=== PATIENT | male | born 1950 | race Caucasian/White ===

== ENCOUNTER 2018-05-29 09:16 | Outpatient (CLI) | payer MEDICARE | END 2018-05-29 09:17 | disposition home or self-care (01) | LOC: SC 09:16 | PROVIDERS: ATTEND Internal Medicine Pulmonary Disease | DX: G47.10 Hypersomnia, unspecified (principal); G47.8 Other sleep disorders; R06.83 Snoring | CPT/HCPCS: 99203; G0463; 99212 ==

== ENCOUNTER 2018-11-01 20:16 | Outpatient (CLI) | payer MEDICARE | END 2018-11-01 20:17 | disposition home or self-care (01) | LOC: SC 20:16 | PROVIDERS: ATTEND Internal Medicine Pulmonary Disease | DX: G47.33 Obstructive sleep apnea (adult) (pediatric) (principal) | CPT/HCPCS: 95810 ==

== ENCOUNTER 2019-01-01 | Outpatient (CLI) | payer MEDICARE | END 2019-01-01 10:06 | disposition home or self-care (01) | DX: G47.33 Obstructive sleep apnea (adult) (pediatric) (principal) | CPT/HCPCS: 99213; G0463; 99212 ==

== ENCOUNTER 2020-03-01 09:27 | Emergency (ER) | payer MEDICARE, OTHER ==
[2020-03-01] MEDS ORDERED: SODIUM CHLORIDE 0.9% 1,000 ML IV STA (10:17)
--- NOTE | 2020-03-01 10:20 | ED Physician Documentation ---
PD HPI ALTERED MENTAL STATUS - Stated complaint Stated Complaint: AMS/CONFUSION - Chief complaint Chief Complaint: Neuro - History obtained from History obtained from: Patient, Family - History of Present Illness Timing - onset: Today Timing - duration: Hours Timing - details: Still present Quality / character: Confused, Disoriented Associated symptoms: General weakness. No: Fever, Headache, Stiff neck, Dyspnea, Cough, NVD, Urinary sx, Focal weakness, Seizure activity, Syncope Contributing factors: Anticoagulated Basline status: Alert and oriented X 3, Ambulatory, Independent Similar symptoms before: Diagnosis (dehydration 2016) Recently seen: Clinic (has recently been started on Tamsulosin) - Additional information Additional information: 69-year-old male previously well went to bed last night feeling his usual self daughter noted he was in his usual self last night. This morning he appears confused and the patient admits to feeling generalized weakness. The daughter indicates that the patient had left the burner on and left the room and she noted him cooking foods that he does not normally eat and then leaving the room while all the food was cooking. She noted an ataxic gait as well. Review of Systems Constitutional: denies: Fever Eyes: denies: Decreased vision Ears: reports: Ear pain (intermittant) Nose: denies: Rhinorrhea / runny nose, Congestion Throat: denies: Sore throat Cardiac: denies: Chest pain / pressure, Palpitations, Pedal edema, Calf pain Respiratory: reports: Cough (phelm in the morning has not changed). denies: Dyspnea, Wheezing GI: denies: Abdominal Pain, Nausea, Vomiting, Constipation, Diarrhea : denies: Dysuria, Frequency Skin: denies: Rash Musculoskeletal: denies: Neck pain, Back pain, Extremity pain PD PAST MEDICAL HISTORY - Past Medical History Past Medical History: Yes Cardiovascular: Hypertension, High cholesterol, CA, Atrial fibrillation Respiratory: None Neuro: None Endocrine/Autoimmune: None GI: GERD : None HEENT: None Psych: None Musculoskeletal: Osteoarthritis Derm: None - Past Surgical History Past Surgical History: Yes Ortho: Other Cardiovascular: CABG - Present Medications Home Medications: Ambulatory Orders Medication Instructions Recorded Confirmed Ezetimibe [Zetia] 10 mg PO DAILY 11/12/14 11/12/14 Fenofibrate,Micronized 134 mg PO DAILY 11/12/14 11/12/14 [Fenofibrate] Metoprolol Succinate 25 mg PO BID 11/12/14 11/12/14 Warfarin [Coumadin] 5 mg PO DAILY 11/12/14 11/12/14 Dronedarone HCl [Multaq] 400 mg PO BID 11/17/15 03/01/20 amLODIPine [Norvasc] 2.5 mg PO DAILY 11/17/15 11/17/15 Losartan [Cozaar] 0.5 tab PO DAILY 03/01/20 03/01/20 Zolpidem Tartrate 1 tab PO DAILY PRN 03/01/20 03/01/20 - Allergies Allergies/Adverse Reactions: Allergies Allergy/AdvReac Type Severity Reaction Status Date / Time rosuvastatin calcium * Allergy Anaphylaxis Verified 03/01/20 09:51 [From Crestor] - Social History Does the pt smoke?: No Smoking Status: Never smoker Does the pt drink ETOH?: No Does the pt have substance abuse?: No - Immunizations Immunizations are current?: Yes PD ED PE NORMAL - Vitals Vital signs reviewed: Yes (hypertensive ) - General General: No acute distress, Well developed/nourished - HEENT HEENT: Atraumatic, PERRL, EOMI - Neck Neck: Supple, no meningeal sign - Cardiac Cardiac: RRR, No murmur - Respiratory Respiratory: No respiratory distress, Clear bilaterally - Abdomen Abdomen: Normal bowel sounds, Soft, Non tender, Non distended, No organomegaly - Back Back: No CVA TTP, No spinal TTP - Derm Derm: Normal color, Warm and dry, No rash - Extremities Extremities: No deformity, No edema - Neuro Neuro: Alert and oriented X 3, autism tutor 2-12 intact, No motor deficit, No sensory deficit, Normal speech Eye Opening: Spontaneous Motor: Obeys Commands Verbal: Oriented GCS Score: 15 - Psych Psych: Normal mood, Normal affect Results - Vitals Vitals: Vital Signs - 24 hr 03/01/20 03/01/20 03/01/20 09:41 11:50 13:00 Temperature 36.6 C Heart Rate 78 85 80 Respiratory 20 17 18 Rate Blood Pressure 149/94 H 124/91 H 131/93 H O2 Saturation 99 98 99 Oxygen O2 Source Room air - EKG (time done) 0958 Rate: Rate (enter#) (84) Rhythm: Paced Compare to prior EKG: Changed from prior EKG (SPT 11-17-2015 the rhythm is now 100% paced) Computer interpretation: Agree with computer - Labs Labs: Laboratory Tests 03/01/20 03/01/20 03/01/20 09:52 09:52 09:52 WBC 6.8 RBC 4.79 Hgb 16.3 Hct 49.4 MCV 103.1 H MCH 34.0 H MCHC 33.0 RDW 12.8 Plt Count 177 MPV 10.1 Neut # (Auto) 3.7 Lymph # (Auto) 2.0 [place] # (Auto) 0.6 Eos # (Auto) 0.3 Baso # (Auto) 0.1 Absolute Nucleated RBC 0.00 Nucleated RBC % 0.0 PT 35.1 H INR 3.4 H Sodium 140 Potassium 4.3 Chloride 102 Carbon Dioxide 30 Anion Gap 8.0 BUN 18 Creatinine 1.4 H Estimated GFR (MDRD) 50 L Glucose 122 H Lactic Acid Calcium 9.5 Total Bilirubin 0.9 AST 24 ALT 20 Alkaline Phosphatase 69 Total Protein 7.2 Albumin 4.0 Globulin 3.2 Albumin/Globulin Ratio 1.3 Lipase 27 Urine Color Urine Clarity Urine pH Ur Specific [place] Urine Protein Urine Glucose (UA) Urine Ketones Urine Occult Blood Urine Nitrite Urine Bilirubin Urine Urobilinogen Ur Leukocyte Esterase Urine RBC Urine WBC Ur Squamous Epith Cells Urine Bacteria Ur Microscopic Review Urine Culture Comments 03/01/20 03/01/20 09:52 11:05 WBC RBC Hgb Hct MCV MCH MCHC RDW Plt Count MPV Neut # (Auto) Lymph # (Auto) [place] # (Auto) Eos # (Auto) Baso # (Auto) Absolute Nucleated RBC Nucleated RBC % PT INR Sodium Potassium Chloride Carbon Dioxide Anion Gap BUN Creatinine Estimated GFR (MDRD) Glucose Lactic Acid 1.5 Calcium Total Bilirubin AST ALT Alkaline Phosphatase Total Protein Albumin Globulin Albumin/Globulin Ratio Lipase Urine Color YELLOW Urine Clarity CLEAR Urine pH 6.0 Ur Specific [place] 1.025 Urine Protein 30 H Urine Glucose (UA) NEGATIVE Urine Ketones NEGATIVE Urine Occult Blood NEGATIVE Urine Nitrite NEGATIVE Urine Bilirubin NEGATIVE Urine Urobilinogen 0.2 (NORMAL) Ur Leukocyte Esterase NEGATIVE Urine RBC None Seen Urine WBC 0-3 Ur Squamous Epith Cells NONE SEEN Urine Bacteria None Seen Ur Microscopic Review INDICATED Urine Culture Comments NOT INDICATED - Rads (name of study) CT head Radiology: Prelim report reviewed (Impression: No acute intracranial abnormality. Chronic small vessel ischemic changes of the subcortical white matter.), EMP read indepedently, See rad report Procedures - IVC sono (time) 1016 Bedside IVC sono: IVC measures (cm) (1.02), IVC collapsed c insp (cm) (complete), Dehydration (est 1-2 lliter deficit) PD MEDICAL DECISION MAKING - ED course Complexity details: reviewed old records, reviewed results, re-evaluated patient, considered differential, d/w patient, d/w family ED course: Previously well 69-year-old male with a history of a pacemaker and hypertension has recently been placed on tamsulosin and he is now appearing confused and weak. He is on Coumadin and he is also found to be dehydrated on interrogation of the inferior vena cava. We have started intravenous fluids and we are obtaining a CT scan of the head. Departure - Departure Disposition: 01 Home, Self Care Clinical Impression: Dehydration Medication side effects present Qualifiers: Encounter type: initial encounter Qualified Code(s): T50.905A - Adverse effect of unspecified drugs, medicaments and biological substances, initial encounter Instructions: Zolpidem tablets, ED Dehydration Follow-Up: Mary Neal MD [Primary Care Provider] - Comments: Today we found you were mildly dehydrated but I suspect that the majority of the symptoms that were present this morning with confusion and an abnormal gait are related to the use of the zolpidem. You may still need to take this medication for sleep and the recommendation is to "1. not take a double dose 2. do not take this medication if you have something you are supposed to do and will need to be awakened for it and 3. if you are confused on awakening have someone stay with you until you are fully awake. " Discharge Date/Time: 03/01/20 13:40
[2020-03-01 10:28] LABS: BASOPHILS # (AUTO) 0.1 10^3/uL (0.0-0.1); BASOPHILS % (AUTO) 0.9 %; EOSINOPHILS # (AUTO) 0.3 10^3/uL (0.0-0.7); EOSINOPHILS % (AUTO) 4.8 %; HGB - HEMOGLOBIN 16.3 g/dL (14.0-18.0); LYMPHOCYTES % (AUTO) 29.3 %; MEAN CORPUSCULAR VOLUME 103.1 fL (80.0-94.0); MEAN PLATELET VOLUME 10.1 fL (7.4-11.4); MONOCYTES # (AUTO) 0.6 10^3/uL (0.0-1.0); MONOCYTES % (AUTO) 9.1 %; NEUTROPHILS # (AUTO) 3.7 10^3/uL (1.5-6.6); NEUTROPHILS % (AUTO) 54.7 %; PLT - PLATELET COUNT 177 10^3/uL (130-450); RED BLOOD COUNT 4.79 10^6/uL (4.70-6.10); RED CELL DISTRIBUTION WIDTH 12.8 % (12.0-15.0); WHITE BLOOD COUNT 6.8 x10^3/uL (4.8-10.8)
[2020-03-01 10:32] LABS: BILIRUBIN,URINE NEGATIVE (NEGATIVE); GLUCOSE, URINE (UA) NEGATIVE (NEGATIVE); KETONES,URINE (UA) NEGATIVE (NEGATIVE); LEUKOCYTE ESTERASE, URINE NEGATIVE (NEGATIVE); NITRITE,URINE NEGATIVE (NEGATIVE); OCCULT BLOOD,URINE NEGATIVE (NEGATIVE); PROTEIN,URINE 30 mg/dL (NEGATIVE); UROBILINOGEN,URINE 0.2 (NORMAL) E.U./dL (NORMAL)
[2020-03-01 10:34] LABS: INR 3.4 (0.8-1.2); PT - PROTHROMBIN TIME 35.1 secs (9.9-12.6)
[2020-03-01 10:41] LABS: CLARITY,URINE CLEAR (CLEAR)
[2020-03-01 10:47] LABS: BACTERIA,URINE None Seen /HPF (None Seen); RBC,URINE None Seen /HPF (0-5); SQUAMOUS EPITHELIAL CELL,UR NONE SEEN (<= Few)
--- NOTE | 2020-03-01 10:48 | CT Report ---
PROCEDURE: HEAD WO INDICATIONS: confusion/weakness TECHNIQUE: Noncontrast 4.5 mm thick angled axial sections acquired from the foramen magnum to the vertex. For r adiation dose reduction, the following was used: automated exposure control, adjustment of mA and/or kV according to patient size. COMPARISON: None. FINDINGS: Image quality: Excellent. CSF spaces: Basal cisterns are patent. No extra-axial fluid collections. Ventricles are normal in size and shape. Brain: No midline shift. No intracranial masses or hemorrhage. Arellano-white matter interface is norm al. There are a few scattered subcortical foci of white matter hypoattenuation. Skull and face: Calvarium and visualized facial bones are intact, without suspicious lesions. Sinuses: Visualized sinuses and mastoids are clear. IMPRESSION: No acute intracranial abnormality. Chronic small vessel ischemic changes of the subcortical white matter. Reviewed by: Brett Davis on 03/01/2020 9:47 AM VIVIAN Approved by: Brett Davis on 03/01/2020 9:47 AM VIVIAN Station ID: [id number]
[2020-03-01 11:00] LABS: ALBUMIN/GLOBULIN RATIO 1.3 (1.0-2.2); BILIRUBIN,TOTAL 0.9 mg/dL (0.2-1.0); CALCIUM 9.5 mg/dL (8.5-10.3); CREATININE 1.4 mg/dL (0.6-1.2); TOTAL PROTEIN 7.2 g/dL (6.7-8.2)
[2020-03-01 13:13] VITALS: BP 131/93
== END 2020-03-01 13:40 | disposition home or self-care (01) ==
LOC: ED 09:27
DX: E86.0 Dehydration (principal); R41.0 Disorientation, unspecified; R26.0 Ataxic gait; T42.6X5A Adverse effect of other antiepileptic and sedative-hypnotic drugs, initial encounter; I10 Essential (primary) hypertension; I48.91 Unspecified atrial fibrillation; Z79.01 Long term (current) use of anticoagulants; Z95.0 Presence of cardiac pacemaker
CPT/HCPCS: 36415; 70450; 80053; 81001; 81003; 83605; 83690; 85025; 85610; 87040; 87086; 93005; 96360; 96361; 99284